=== PATIENT | female | born 1975 | race Caucasian/White ===

== ENCOUNTER 2021-01-04 10:49 | Outpatient (CLI) | payer OTHER ==
--- NOTE | 2021-01-05 12:09 | Mammography Report ---
BILATERAL DIGITAL DIAGNOSTIC MAMMOGRAM 3D/2D: 01/04/2021 CLINICAL: Baseline exam. Palpable left breast lump. Baseline exam. No prior exams were available for comparison. There are scattered fibroglandular jamul ents in both breasts. There is a 1.4 cm oval mass with an indistinct margin in the left breast at 11 o'clock posterior dept h. This correlates as palpated. There is a 0.5 cm oval mass with a circumscribed margin in the right breast at 12 o'clock middle dept h. No other significant masses or calcifications are seen in either breast. IMPRESSION: INCOMPLETE: NEEDS ADDITIONAL IMAGING EVALUATION 1) The 1.4 cm oval mass in the left breast at 11 o'clock posterior depth is indeterminate. -A targeted ultrasound is recommended and will immediately follow. 2) The 0.5 cm oval mass in the right breast at 12 o'clock middle depth resembles an intramammary node and is indeterminate. -An ultrasound is recommended. This exam was interpreted at Station ID: [id number]. NOTE: For mammograms, a report in lay terms will be sent to the patient. Approximately 15% of breast malignancies will not be visualized mammographically. In the management of a palpable breast mass, a negative mammogram must not discourage biopsy of a clinically suspicious lesion. Electronically Signed By: Nicolás Contreras M.D. slc/:01/04/2021 14:43:43 ACR BI-RADS Category 0: Incomplete 3340F PARENCHYMAL PATTERN: (A) - The breast(s) demonstrate(s) scattered fibroglandular densities. BI-RADS CATEGORY: (0) - 0 Ultrasound [id number] Immediate follow-up LATERALITY: (B)
--- NOTE | 2021-01-05 12:09 | Ultrasound Report ---
LIMITED ULTRASOUND OF LEFT BREAST AND AXILLA: 01/04/2021 CLINICAL: Palpable left breast lump. Comparison is made to exam dated: 01/04/2021 mammogram - [facility]. Color flow and real-time ultrasound of the left breast 11-12 o'clock, and axilla regions were perform ed. Street scale images of the real-time examination were reviewed. There is a 1.6 cm x 1.4 cm x 1.3 cm oval mass with an indistinct and microlobulated margin in the lef t breast at 11 o'clock posterior depth 9 cm from the nipple. This oval mass is hypoechoic. This cor relates as palpated and with mammography findings. Color flow imaging demonstrates that there is vas cularity present. No significant abnormalities were seen sonographically in the left axilla. IMPRESSION: SUSPICIOUS OF MALIGNANCY The 1.6 cm x 1.4 cm x 1.3 cm oval mass in the left breast is at a high suspicion for malignancy. An ultrasound guided biopsy is recommended. Note: Recommended contralateral right breast ultrasound could not be obtained today and will have to be scheduled at another time. This could be preformed on the day of the ultrasound guided biopsy if p ossible. Exam findings were discussed with the patient by Dr. Kaity Meza. This exam was interpreted at Station ID: [id number]. Electronically Signed By: Nicolás Contreras M.D. slc/:01/04/2021 14:49:54 Ultrasound BI-RADS: 4c High suspicion of malignancy BI-RADS CATEGORY: (4c) - High Susp None [id number] Immediate follow-up LATERALITY: ()
== END 2021-01-04 10:50 | disposition home or self-care (01) ==
LOC: DI 10:49
PROVIDERS: ATTEND Physician Assistant
DX: N63.22 Unspecified lump in the left breast, upper inner quadrant (principal); N63.12 Unspecified lump in the right breast, upper inner quadrant

== ENCOUNTER 2021-01-11 12:34 | Outpatient (CLI) | payer OTHER ==
[2021-01-11] MEDS ORDERED: LIDOCAINE 1%-EPI 1:100000 20 ML MDV ONE (12:50)
[2021-01-11] MEDS ORDERED: BUFFERED LIDOCAINE 10 ML SYRINGE ONE (12:50)
[2021-01-11] MEDS ORDERED: BUFFERED LIDOCAINE 10 ML SYRINGE IU ONE (14:54)
[2021-01-11] MEDS ORDERED: LIDOCAINE 1%-EPI 1:100000 20 ML MDV SUBQ ONE (14:55)
--- NOTE | 2021-01-12 11:34 | Mammography Report ---
UNILATERAL LEFT DIGITAL DIAGNOSTIC MAMMOGRAM 3D/2D: 01/11/2021 CLINICAL: Post left breast ultrasound biopsy clip placement imaging. Comparison is made to exams dated: 01/04/2021 ultrasound, 01/11/2021 ultrasound biopsy, and 01/04/2021 [facility]. There are scattered fibroglandular elements in left breast. There is a marker clip in the appropriate position in the left breast at 11 o'clock .This marker clip placement is at the biopsy site. IMPRESSION: POST PROCEDURE MAMMOGRAM FOR MARKER PLACEMENT There was a successful marker clip placement in the left breast This exam was interpreted at Station ID: [id number]. NOTE: For mammograms, a report in lay terms will be sent to the patient. Approximately 15% of breast malignancies will not be visualized mammographically. In the management of a palpable breast mass, a negative mammogram must not discourage biopsy of a clinically suspicious lesion. Electronically Signed By: Navarro moreno/:01/11/2021 16:12:06 ACR BI-RADS Category Post-procedure mammogram for marker placement PARENCHYMAL PATTERN: (A) - The breast(s) demonstrate(s) scattered fibroglandular densities. BI-RADS CATEGORY: () - Biopsy follow-up [id number] Immediate follow-up LATERALITY: (B)
--- NOTE | 2021-01-14 06:34 | Ultrasound Report ---
ULTRASOUND GUIDED BIOPSY LEFT BREAST USING VACUUM DEVICE WITH MARKING DEVICE INSERTED: 01/11/2021 CLINICAL: Left breast mass. PATIENT CONSENT: Risks (minor bleeding, infection, vasovagal reaction and repeat procedure), benefits and alternatives were explained to the patient and written informed consent was obtained. Correlation is made to exams dated: 01/04/2021 ultrasound and 01/04/2021 mammogram - [facility]. An ultrasound guided biopsy using real-time ultrasound was performed for the irregular shaped mass lo cated in the left breast at 11 o'clock posterior depth. The skin was prepped in the usual manner. L ocal anesthetic was administered to the access site. A small incision was made in the breast. The a bnormality was approached from the lateral aspect. A biopsy needle was placed adjacent to the abnorm ality under ultrasound guidance. Once the needle was documented to be in the correct location, a spe cimen was obtained using the Mammotome biopsy system. The patient received additional local anesthet ic during the procedure. A clip was inserted into the biopsy cavity. The specimen was sent to the l aboratory for pathological analysis. IMPRESSION: ULTRASOUND GUIDED BIOPSY MALIGNANT Ultrasound guided biopsy of the mass in the left breast at 11 o'clock was successful. Pathology martin cates malignant infiltrating ductal carcinoma. Pathology results are concordant with mammography and ultrasound findings. Surgical and oncologic consultation are recommended. A right breast ultrasound for evaluation of a 12:00 mass seen on mammogram is recommended as per prev ious mammogram of 01/04/21. This exam was interpreted at Station ID: [id number]. Navarro moreno,ddp/:01/13/2021 16:59:37 BI-RADS CATEGORY: () - Unspecified - other recall n/a LATERALITY: (B)
== END 2021-01-11 12:35 | disposition home or self-care (01) ==
LOC: DI 12:34
PROVIDERS: ATTEND Physician Assistant
DX: C50.212 Malignant neoplasm of upper-inner quadrant of left female breast (principal); Z17.0 Estrogen receptor positive status [ER+]
CPT/HCPCS: 19083

== ENCOUNTER 2021-03-12 13:45 | Outpatient (CLI) | payer OTHER | END 2021-03-12 13:46 | disposition home or self-care (01) | LOC: COV 13:45 | PROVIDERS: ATTEND Surgery | DX: Z01.812 Encounter for preprocedural laboratory examination (principal); C50.912 Malignant neoplasm of unspecified site of left female breast; Z20.822 Contact with and (suspected) exposure to COVID-19 ==

== ENCOUNTER 2021-03-15 07:16 | Day surgery (SDC) | payer OTHER ==
[2021-03-15] MEDS ORDERED: BUFFERED LIDOCAINE 10 ML SYRINGE ONE (07:42)
[2021-03-15 08:04] LABS: HCG UR QUAL NEGATIVE
[2021-03-15] MEDS ORDERED: ceFAZolin 2 GM/50 ML 2 GM/50 ML BAG IV ONE (08:13)
[2021-03-15] MEDS ORDERED: SCOPOLAMINE PATCH TOP ONE (09:25)
--- NOTE | 2021-03-15 09:34 | ANESTHESIA ---
Pre-Anesthesia VS, & Labs - Diagnosis L breast cancer - Procedure L breast lumpectomy Vital Signs: Temp Pulse Resp BP Pulse Ox 36 C L 75 16 142/91 H 97 03/15/21 07:49 03/15/21 07:49 03/15/21 07:49 03/15/21 07:49 03/15/21 07:49 Height: 5 ft 4 in Weight (kg): 93.6 kg Body Mass Index: 35.4 BMI Classification: Obese - Is Patient ?: No Home Medications and Allergies Home Medications: Ambulatory Orders Cetirizine HCl [Zyrtec] 20 mg PO DAILY 03/04/21 Cholecalciferol (Vitamin D3) [Vitamin D3] 50,000 unit PO OAW 03/04/21 Minocycline HCl 50 mg PO DAILY 03/04/21 Rosuvastatin Calcium [Crestor] 20 mg PO DAILY 03/04/21 Varenicline Tartrate [Chantix] 1 mg PO BID 03/04/21 Cetirizine HCl [Zyrtec] 20 mg PO DAILY 03/04/21 Cholecalciferol (Vitamin D3) [Vitamin D3] 50,000 unit PO OAW 03/04/21 Minocycline HCl 50 mg PO DAILY 03/04/21 Rosuvastatin Calcium [Crestor] 20 mg PO DAILY 03/04/21 Varenicline Tartrate [Chantix] 1 mg PO BID 03/04/21 Allergies/Adverse Reactions: Allergies Allergy/AdvReac Type Severity Reaction Status Date / Time No Known Drug Allergies Allergy Verified 03/04/21 12:24 Anes History & Medical History - Anesthetic History Anesthesia Complications: reports: No previous complications Family history of Anesthesia Complications: Denies Family history of Malignant Hyperthermia: Denies - Medical History Cardiovascular: reports: High cholesterol Pulmonary: reports: None Gastrointestinal: reports: None Urinary: reports: None Musculoskeletal: reports: None Endocrine/Autoimmune: reports: None Skin: reports: None Smoking Status: Current every day smoker - Surgical History Eyes Ears Nose Throat (EENT): reports: Tonsil/Adenoidectomy Gynecologic: reports: Breast reduction Exam General: Alert, Oriented x3, Cooperative Dental: WNL Mouth Openin Fingerbreadth Neck Mobility: Normal Mallampati classification: II Thyromental Distance: 4-6 cm Respiratory: Lungs clear Cardiovascular: Regular rate Plan Anesthesia Type: General Consent for Procedure(s) Verified and Reviewed: Yes Code Status: Attempt Resuscitation ASA classification: 2-Mild systemic disease Is this case an emergency?: No
[2021-03-15] MEDS ORDERED: ATROPINE ABBOJECT 1 MG/10 ML SYRINGE IVP PRN (09:35)
[2021-03-15] MEDS ORDERED: MORPHINE 2 MG/ML CARPUJECT IVP PRN (09:35)
[2021-03-15] MEDS ORDERED: fentaNYL 100 MCG/2 ML VIAL IVP PRN (09:35)
[2021-03-15] MEDS ORDERED: ONDANSETRON 4 MG/2 ML VIAL IVP PRN ×2 (09:35→14:37)
[2021-03-15] MEDS ORDERED: METOCLOPRAMIDE 10 MG/2 ML VIAL IVP PRN (09:35)
[2021-03-15] MEDS ORDERED: HYDROmorphone 0.5 MG/0.5 ML SYRINGE IVP PRN (09:35)
[2021-03-15] MEDS ORDERED: NALOXONE 0.4 MG/ML VIAL IVP PRN (09:35)
[2021-03-15] MEDS ORDERED: ePHEDrine 50 MG/ML VIAL IVP PRN (09:35)
[2021-03-15] MEDS ORDERED: LACTATED RINGERS 1,000 ML IV SCH (10:00)
[2021-03-15] MEDS ORDERED: LIDOCAINE 1% 50 ML MDV ONE (12:44)
[2021-03-15] MEDS ORDERED: BUPIVACAINE 0.5%-EPI 1:200000 PF 30 ML VIAL ONE (12:44)
[2021-03-15] MEDS ORDERED: fentaNYL 100 MCG/2 ML VIAL ONE (13:06)
[2021-03-15] MEDS ORDERED: MIDAZOLAM 2 MG/2 ML VIAL ONE (13:06)
[2021-03-15] MEDS ORDERED: LIDOCAINE-MPF 2% 5 ML VIAL ONE (13:07)
[2021-03-15] MEDS ORDERED: PROPOFOL 200 MG/20 ML VIAL IVP ONE (13:07)
[2021-03-15] MEDS ORDERED: LIDOCAINE 1% 50 ML MDV SUBQ ONE (13:54)
[2021-03-15] MEDS ORDERED: BUPIVACAINE 0.5%-EPI 1:200000 PF 30 ML VIAL SUBQ ONE (13:54)
[2021-03-15] MEDS ORDERED: DEXAMETHASONE 4 MG/ML VIAL ONE (14:03)
[2021-03-15] MEDS ORDERED: ONDANSETRON 4 MG/2 ML VIAL ONE (14:03)
[2021-03-15] MEDS ORDERED: ACETAMINOPHEN 1,000 MG/100 ML 100 ML IV ONE (14:11)
--- NOTE | 2021-03-15 14:31 | OPERATIVE REPORT ---
Operative Report - Procedure Note Indications: Biopsy proven left breast cancer Findings: One sentinel node with a 10 second count of 9474. Background in the room is 0. Background in the axilla is 7-11. Target, clip and wire centered in the specimen Complications: None apparent - Other Other Information/Narrative: After obtaining informed consent, the patient was brought to the operating room and placed in the supine position on the operating table. Following successful induction of general endotracheal anesthesia, appropriate padding of all bony prominences, and placement of appropriate monitors, the left breast was prepped and draped in the standard surgical fashion. A timeout was held per scope protocol. All elements of the surgical safety checklist were followed before, during, and after the procedure. We began the procedure with a sentinel node dissection. The site of the brightest node had been marked in radiology with 2 skin marker axis. The neoprobe was used to identify the site of greatest uptake at level 2 in the patient's axilla. The patient is quite thin and has minimal axillary tissue. An incision was created over this area of uptake and carried through the skin and subcutaneous tissue to enter the axillary node packet. The first sentinel node was easily identified. It was large and firm. It was carefully dissected free from surrounding stop structures sharply, all lymphatics and vasculature were addressed with clips prior to division. The node was liberated into the field. 10-second counts are recorded. Survey of the axilla revealed a background between 7 and 11 and no other targets of increased uptake. The axilla was examined for hemostasis. It was irrigated with warm water and aspirated free of fluid and particulate matter. Background in the room was 0. The axil chana incision was then closed in 2 layers with Vicryl and Monocryl sutures. We turned our attention to the left breast mass. The area over the mass and in the periareolar region was infiltrated with a mixture of local anesthetics to cry to field block. We continued with the left breast lumpectomy. The area over the marked lesion was infiltrated with a mixture of local anesthetics. An incision was created directly over the position of the lesion as measured using the mammogram and MRI. An incision was created directly over this and carried through the skin and subcutaneous tissue. The mass was then removed using sharp dissection. It was marked while in position and still attached posteriorly. It was marked with a short stitch superior, long stitch lateral, and double stitch anterior. It was finally liberated sharply and delivered into the field. The wound was checked for hemostasis. It was irrigated again with warm water. The biopsy cavity was then marked for orientation with clips peripherally and centrally.The wound was then closed in 2 layers with Vicryl and Monocryl sutures. All sponge, needle, and instrument counts were correct at the conclusion of the case. The patient was let awakened anesthesia without difficulty and taken to the postanesthesia care unit in good condition.Dr. Caal called back in the room reporting that the target, clip, and wire are all centered within the specimen.
[2021-03-15] MEDS ORDERED: oxyCODONE 5 MG TABLET PO PRN (14:37)
[2021-03-15] MEDS ORDERED: ACETAMINOPHEN 325 MG TABLET PO PRN (14:37)
[2021-03-15] MEDS ORDERED: IBUPROFEN 600 MG TABLET PO PRN (14:37)
[2021-03-15] MEDS ORDERED: LACTATED RINGERS 600 ML IV ONE (14:42)
[2021-03-15 15:45] VITALS: BP 143/89
[2021-03-15] MEDS ORDERED: BUFFERED LIDOCAINE 10 ML SYRINGE IU ONE (15:58)
--- NOTE | 2021-03-15 16:27 | ANESTHESIA POST OP EVALUATION ---
Anesthesia Post Eval - Post Anesthesia Eval Vitals: Last Vital Signs Temp 36. C L 03/15/21 15:30 Pulse 79 03/15/21 15:30 Resp 16 03/15/21 15:30 BP 143/89 H 03/15/21 15:30 Pulse Ox 99 03/15/21 15:30 CV Function Including HR & BP: Stable Pain Control: Satisfactory Nausea & Vomiting: Negative Mental Status: Baseline Respiratory Status: Airway Patent Hydration Status: Satisfactory Anesthesia Complications: None
--- NOTE | 2021-03-15 17:43 | Nuclear Medicine Report ---
PROCEDURE: Lymph Node Scintigraphy INDICATIONS: LEFT BREAST CA RADIOPHARMACEUTICAL: 0.5-1.0 mCi Millipore filtered Tc-99m sulfur colloid. TECHNIQUE: The area around the nipple was prepped and draped in a sterile fashion. Tc-99m sulfur colloid was in jected intra-dermally in the outer edge of the areola in the left breast breast. Images were obtaine d subsequently. A body contour outline was obtained. FINDINGS: There is a focal uptake medial to the alveola, which is marked on skin. IMPRESSION: 1. A focal uptake noted medial to the alveola (the injection site), as marked on skin. Reviewed by: Eric Peña MD on 03/15/2021 5:42 PM PDT Approved by: Eirc Peña MD on 03/15/2021 5:42 PM PDT Station ID: [id number]
--- NOTE | 2021-03-16 06:16 | Mammography Report ---
SPECIMEN: 03/15/2021 CLINICAL: Left breast specimen. No prior exams were available for correlation. The specimen from the OR contains the breast mass, the prior US biopsy localization clip, and the Juan M er localization wire. IMPRESSION: SPECIMEN All expected items are contained in the breast lumpectomy specimen. This exam was interpreted at Station ID: [id number]. Andrés Contreras M.D. [facility] [place] [facility] [place]:03/15/2021 16:20:55 BI-RADS CATEGORY: () - Unspecified - other recall n/a LATERALITY: (B)
--- NOTE | 2021-03-16 06:16 | Ultrasound Report ---
ULTRASOUND GUIDED WIRE LOCALIZATION LEFT BREAST WITH POST DIGITAL MAMMOGRAPHIC AND ULTRASOUND IMAGING AND RADIOGRAPHIC SPECIMEN IMAGIN03/15/2021 CLINICAL: Pre op wire localization with ultrasound. Correlation is made to exams dated: 01/11/2021 mammogram, 01/11/2021 ultrasound biopsy, 01/04/2021 ultraso und, and 01/04/2021 mammogram - [facility]. A wire localization using ultrasound guidance was performed for the concerning circumscribed lobulate d solid mass located in the left breast at 11 o'clock middle depth. This was described on the previo us mammography and ultrasound reports. The skin was prepped in the usual manner. Local anesthetic w as administered to the access site. The localization was approached from the lateral aspect. A J-ho ok wire was inserted into the targeted area under ultrasound guidance. A sterile dressing was applie d to the access site. Post placement digital mammographic and ultrasound imaging demonstrates the ti p rests in the targeted area. IMPRESSION: WIRE LOCALIZATION Wire localization for the solid mass in the left breast at 11 o'clock middle depth was successful. This exam was interpreted at Station ID: [id number]. Andrés Caal M.D. sdh/:03/15/2021 12:45:08 BI-RADS CATEGORY: () - Unspecified - other recall n/a LATERALITY: (B)
--- NOTE | 2021-03-16 06:16 | Mammography Report ---
UNILATERAL LEFT DIGITAL DIAGNOSTIC MAMMOGRAM 3D/2D: 03/15/2021 CLINICAL: Pre op wire localization with ultrasound. Comparison is made to exams dated: 03/15/2021 localization and 01/11/2021 mammogram - [facility]. There are scattered fibroglandular elements in left breast. There is a mass in the left breast at 11 o'clock middle depth and this was localized by [place] wire fo r subsequent lumpectomy same day. IMPRESSION: KNOWN BIOPSY PROVEN MALIGNANCY The wire localization was successful, and subsequent specimen radiograph is anticipated. This exam was interpreted at Station ID: [id number]. NOTE: For mammograms, a report in lay terms will be sent to the patient. Approximately 15% of breast malignancies will not be visualized mammographically. In the management of a palpable breast mass, a negative mammogram must not discourage biopsy of a clinically suspicious lesion. Electronically Signed By: Andrés Caal M.D. sdh/:03/15/2021 12:49:25 ACR BI-RADS Category 6: Known biopsy proven malignancy 3346F PARENCHYMAL PATTERN: (A) - The breast(s) demonstrate(s) scattered fibroglandular densities. BI-RADS CATEGORY: (6) - 6 Unspecified - other recall n/a LATERALITY: (B)
== END 2021-03-15 07:17 | disposition home or self-care (01) ==
LOC: SDS 07:16
PROVIDERS: ATTEND Surgery
PROC: 0HBU0ZZ Excision of Left Breast, Open Approach (ICD-10-PCS; 2021-03-15)
PROC: 07B60ZX Excision of Left Axillary Lymphatic, Open Approach, Diagnostic (ICD-10-PCS; principal; 2021-03-15 10:30)
DX: C50.212 Malignant neoplasm of upper-inner quadrant of left female breast (principal); Z17.0 Estrogen receptor positive status [ER+]; E78.5 Hyperlipidemia, unspecified; F17.200 Nicotine dependence, unspecified, uncomplicated; Z79.899 Other long term (current) drug therapy
CPT/HCPCS: 19285; 19301; 38525; 38900; 76098; 77065; 78195; 81025; J0131; J0690; J3490; J7120

== ENCOUNTER 2022-04-28 08:22 | Outpatient (CLI) | payer OTHER ==
--- NOTE | 2022-04-28 13:56 | Ultrasound Report ---
PROCEDURE: Abdomen Limited INDICATIONS: ELEVATED AST, ALT TECHNIQUE: Real-time focused scanning was performed of the abdomen, with image documentation. COMPARISON: No pertinent prior study. FINDINGS: Coarsened hepatic parenchymal echotexture. No focal hepatic mass. Suggestion of possible contour nodu larity at the liver surface. No intrahepatic or extra hepatic biliary ductal dilatation. Gallbladder, pancreas, and right kidney are normal. IMPRESSION: Coarsened hepatic parenchymal echogenicity with possible contour nodularity suggestive of cirrhosis. Reviewed by: Ky Esquivel MD on 04/28/2022 1:54 PM PDT Approved by: Ky Esquivel MD on 04/28/2022 1:54 PM PDT Station ID: [id number]
== END 2022-04-28 08:23 | disposition home or self-care (01) ==
LOC: DI 08:22
PROVIDERS: ATTEND Physician Assistant
DX: R74.8 Abnormal levels of other serum enzymes (principal)

== ENCOUNTER 2023-02-02 07:47 | Outpatient (CLI) | payer OTHER ==
--- NOTE | 2023-02-02 11:48 | Mammography Report ---
BILATERAL DIGITAL DIAGNOSTIC MAMMOGRAM 3D/2D: 02/02/2023 CLINICAL: Patient returns for a 6 month follow up of bilateral breasts. Comparison is made to exams dated: 07/13/2022 mammogram, 01/13/2022 mammogram - [facility], 03/15/2021 specimen, 03/15/2021 mammogram, 03/15/2021 localization - [facility], and 02/08/2021 breast MRI - [facility]. Both breasts are almost entirely fatty (category a/<25% glandular tissue). There are surgical clips and scar marker in the left breast at 12 o'clock. There also are stable merrick ign intramammary node in the right breast at 11 o'clock in the posterior depth. No significant masses, calcifications, or other findings are seen in either breast. Mammograms are o therwise stable. IMPRESSION: BENIGN Expected appearance of left breast post surgery and treatment. No suspicious findings. Stable right b reast mammogram. Return to annual mammogram screening schedule is recommended. Findings and recommendations were conveyed to the patient at time of exam. This exam was interpreted at Station ID: [id number]. NOTE: For mammograms, a report in lay terms will be sent to the patient. Approximately 15% of breast malignancies will not be visualized mammographically. In the management of a palpable breast mass, a negative mammogram must not discourage biopsy of a clinically suspicious lesion. Electronically Signed By: Bonny adam/:02/02/2023 08:23:41 letter sent: No_Letter ACR BI-RADS Category 2: Benign Finding(s) 3342F PARENCHYMAL PATTERN: (F) - The breast(s) demonstrate(s) diffuse fatty replacement. BI-RADS CATEGORY: (2) - 2 RECOMMENDATION: (ANNUAL) - Recommend routine annual screening mammography. [id number] return to screening LATERALITY: (B)
== END 2023-02-02 07:48 | disposition home or self-care (01) ==
LOC: DI 07:47
PROVIDERS: ATTEND Surgery
DX: C50.912 Malignant neoplasm of unspecified site of left female breast (principal)

== ENCOUNTER 2023-11-02 07:21 | Outpatient (CLI) | payer OTHER ==
--- NOTE | 2023-11-03 11:48 | Ultrasound Report ---
LIMITED ULTRASOUND OF LEFT BREAST: 11/02/2023 CLINICAL: Intermittent pain in left breast. Comparison is made to exams dated: 11/02/2023 mammogram, 02/02/2023 mammogram - [facility], 07/13/2022 mammogram, 01/13/2022 mammogram - [facility], and 01/04/2021 mammogram - [facility]. Real-time ultrasound of the left breast 10 o'clock region was performed. Street scale images of the re al-time examination were reviewed. No significant abnormalities were seen sonographically in the left breast in the region of pain. IMPRESSION: NEGATIVE There is no sonographic evidence of malignancy. Exam findings were conveyed to the patient. Patient is advised to monitor for significant change. Cli nical follow-up as needed. Return to annual mammogram screening schedule is recommended. 02/04/2024 This exam was interpreted at Station ID: [id number]. Electronically Signed By: Nicolás Contreras M.D. slc/:11/02/2023 08:56:02 Ultrasound BI-RADS: 1 Negative BI-RADS CATEGORY: (1) - 1 RECOMMENDATION: (ANNUAL) - Recommend routine annual screening mammography. [id number] return to screening LATERALITY: (B)
--- NOTE | 2023-11-03 11:48 | Mammography Report ---
UNILATERAL LEFT DIGITAL DIAGNOSTIC MAMMOGRAM 3D/2D: 11/02/2023 CLINICAL: Focal left breast pain. Personal history of left breast cancer. Comparison is made to exams dated: 02/02/2023 mammogram - [facility], 01/13/2022 [facility] mogram - [facility], 03/15/2021 mammogram, 01/11/2021 mammogram, and 01/04/2021 mammogram - [facility]. The left breast is almost entirely fatty (category a/<25% glandular tissue). No significant masses, calcifications, or other findings are seen in the breast. Post operative find ing in the left breast. IMPRESSION: INCOMPLETE: NEEDS ADDITIONAL IMAGING EVALUATION No mammographic evidence of malignancy. A targeted ultrasound is recommended and will immediately follow. This exam was interpreted at Station ID: [id number]. NOTE: For mammograms, a report in lay terms will be sent to the patient. Approximately 15% of breast malignancies will not be visualized mammographically. In the management of a palpable breast mass, a negative mammogram must not discourage biopsy of a clinically suspicious lesion. Electronically Signed By: Nicolás Contreras M.D. slc/:11/02/2023 08:36:49 ACR BI-RADS Category 0: Incomplete 3340F PARENCHYMAL PATTERN: (F) - The breast(s) demonstrate(s) diffuse fatty replacement. BI-RADS CATEGORY: (0) - 0 Ultrasound [id number] Immediate follow-up LATERALITY: (B)
== END 2023-11-02 07:22 | disposition home or self-care (01) ==
LOC: DI 07:21
PROVIDERS: ATTEND Internal Medicine Hematology & Oncology
DX: R92.8 Other abnormal and inconclusive findings on diagnostic imaging of breast (principal); N64.4 Mastodynia